=== PATIENT | female | born 1975 | race Caucasian/White ===

== ENCOUNTER 2022-02-07 08:39 | Outpatient (CLI) | payer SELFPAY | END 2022-02-07 08:40 | disposition home or self-care (01) | LOC: FRMREF 08:40 | PROVIDERS: PCP Physician Assistant Medical; Visit Provider Physician Assistant Medical | DX: R30.0 Dysuria (principal); F41.9 Anxiety disorder, unspecified | CPT/HCPCS: 87086; 87186; 87491; 87591 ==

== ENCOUNTER 2022-08-27 13:05 | Outpatient (CLI) | payer BC, SELFPAY | END 2022-08-27 13:06 | disposition home or self-care (01) | LOC: NFLDREF 08-30 04:52 | PROVIDERS: PCP Physician Assistant Medical; Referring Provider Physician Assistant Medical; Visit Provider Registered Nurse | DX: R30.0 Dysuria (principal); N39.0 Urinary tract infection, site not specified | CPT/HCPCS: 87086; 87186 ==

== ENCOUNTER 2022-11-26 13:17 | Outpatient (CLI) | payer BC, SELFPAY ==
[2022-11-26 19:44] LABS: Chlamydia DNA Amplified* NOT DETECTED (No Detected); GC DNA Amplified* NOT DETECTED (No Detected)
== END 2022-11-26 13:18 | disposition home or self-care (01) ==
LOC: NFLDREF 13:19
PROVIDERS: PCP Physician Assistant Medical; Visit Provider Registered Nurse
DX: N89.8 Other specified noninflammatory disorders of vagina (principal)
CPT/HCPCS: 87491; 87591

== ENCOUNTER 2023-07-18 13:30 | Emergency (ER) | payer OTHER, SELFPAY ==
[2023-07-18 13:54] VITALS: BP 119/68; PULSE 120; RESP 20; TEMP 38.6; O2SAT 98; BMI 23.6
[2023-07-18 14:37] LABS: Strep A DNA Probe* NOT DETECTED (Not Detectd)
[2023-07-18 14:49] LABS: PCR FLU A Negative PCR FLU A (Negative); PCR FLU B POSITIVE PCR FLU B (Negative); PCR RSV Negative PCR RSV (Negative); SARS PCR* Negative SARS-CoV-2 (Negative)
--- NOTE | 2023-07-18 15:24 | ED.GENADULT ---
HPI - General Adult General Chief complaint: Weakness Stated complaint: Fever, body aches, cough Time Seen by Provider: 07/18/23 14:46 History of Present Illness HPI narrative: Son brings mom in today because he thinks his mom is suffering from menopause . Mom states she has been achy all over and has not been able to eat or drink for three days, no energy and fever/chills. She has also had a sore throat. Strep swab and triple swab done in triage. 47-year-old woman presenting to the emergency department with concern of aches and headache. Limited oral intake over the last 3 days. Just over 3 days ago seemed to be gone with sore throat. Did vomit once but she thinks that was related to gagging while coughing. Also had 1 episode of diarrhea. Has not had a bowel movement for a few days. Just wants to feel better ?fix me?. Was actually just starting work this week. Unsure from whom were where she might have gotten sick Related Data Previous Rx's Medication Instructions Recorded venlafaxine 150 mg 150 mg PO QDAY #90 caps 04/16/23 capsule,extended release 24 hr oxycodone 5 mg/5 mL oral solution 7 mg (7 mL) PO Q4-6H PRN pain #280 04/24/23 mL venlafaxine 37.5 mg 37.5 mg PO QDAY #30 caps 04/24/23 capsule,extended release 24 hr venlafaxine 75 mg capsule,extended 75 mg PO QAM #14 caps 07/14/23 release 24 hr Allergies Allergy/AdvReac Type Severity Reaction Status Date / Time No Known Drug Allergies Allergy Verified 07/18/23 13:56 Review of Systems Status of ROS: Reports: 6 or more systems reviewed and unremarkable except as noted in History and below [facility] Medical History Bacterial vaginosis ?N76.0 - Acute vaginitis (ICD-10) ?B96.89 - Other specified bacterial agents as the cause of diseases classified elsewhere (ICD-10) Latent tuberculosis ?Z22.7 - Latent tuberculosis (ICD-10) History of dizziness ?Z87.898 - Personal history of other specified conditions (ICD-10) Surgical History Status post wrist surgery (12/01/12) ?Z98.890 - Other specified postprocedural states (ICD-10) History of breast augmentation (12/01/12) ?Z98.82 - Breast implant status (ICD-10) Family History Paternal Grandmother Asthma Depression Mother Depression Diabetes Sister Bipolar disorder Diabetes High blood pressure Aunt Diabetes Bipolar disorder Uterine cancer Father Myocardial infarction, Onset Age: 63 Stroke Son Schizophrenia Social History Narrative: Non-smoker Rarely consumes alcohol Does not use illicit drugs Exercises regularly 3/week, running, rope jumping What is your current living situation?: I presently have a place to live Problems where you live: declined to answer In the past 12 months, utilities in danger of being shut off: no In past 12 months, lack of transportation kept you from medical appts, meetings, work, or getting things needed for daily living: no In the past 12 mos, have been you worried that your food would run out before you had money to buy more?: often true In the past 12 mos, the food you bought just didn't last and you didn't have money to buy more?: often true Smoking Status: Never smoker Do you use any of these nicotine containing products: None How often do you have a drink containing alcohol: never How often do you have six or more drinks on one occasion: Never AUDIT-C Alcohol total score: 0 Non-prescribed substance use: denies use How often does anyone, including family, friends and others, physically hurt you: never How often does anyone, including family, friends and others, insult or talk down to you: never How often does anyone, including family, friends and others, threaten you with harm: never How often does anyone, including family, friends and others, scream or curse at you: never Little interest or pleasure in doing things: several days Feeling down, depressed, or hopeless: more than half the days service: No Exam Narrative: Exam Narrative: Pleasant. Easily conversant. Cranial nerves 2-12 intact. Clearly uncomfortable. Slightly labored in breathing but not tachypneic. Intermittent cough. Oropharynx is sticky. Mildly erythematous posteriorly. No cervical lymphadenopathy. Lungs are clear. Heart is tachycardic in a regular rhythm. Abdomen is soft. Moving all extremities without difficulty. Skin is quite warm. Dry. Const: Vital Signs, click to edit/add: Vital Signs - 24 hr 07/18/23 13:54 07/18/23 16:26 Temperature 101.5 F H 100.1 F H Pulse Rate [Right Pulse Oximeter] 120 H 83 Respiratory Rate 20 20 Blood Pressure [Ri ght Upper Arm] 119/68 112/64 Pulse Oximetry 98 99 Oxygen Delivery Me thod Room Air Room Air Documenting provider has reviewed patient's vital signs: yes Course Vital Signs Vital signs: Initial Vital Signs Temperature 101.5 F H 07/18/23 13:54 Temperature Source Temporal Artery Scan 07/18/23 13:54 Pulse Rate 120 H 07/18/23 13:54 Pulse Rhythm Regular 07/18/23 13:54 Pulse Strength 3+ Normal 07/18/23 13:54 Respiratory Rate 20 07/18/23 13:54 Blood Pressure 119/68 07/18/23 13:54 Blood Pressure Mean 85 07/18/23 13:54 Blood Pressure Position Sitting 07/18/23 13:54 Pulse Oximetry 98 07/18/23 13:54 Oxygen Delivery Method Room Air 07/18/23 13:54 Vital Signs Temperature 101.5 F H 07/18/23 13:54 Pulse Rate 120 H 07/18/23 13:54 Respiratory Rate 20 07/18/23 13:54 Blood Pressure 119/68 07/18/23 13:54 Pulse Oximetry 98 07/18/23 13:54 Oxygen Delivery Method Room Air 07/18/23 13:54 Temperature 100.1 F H 07/18/23 16:26 Pulse Rate 83 07/18/23 16:26 Respiratory Rate 20 07/18/23 16:26 Blood Pressure 112/64 07/18/23 16:26 Pulse Oximetry 99 07/18/23 16:26 Oxygen Delivery Method Room Air 07/18/23 16:26 Medications Administered Medications: Discontinued Medications Generic Name Dose Route Start Last Admin Trade Name Freq PRN Reason Stop Dose Admin Sodium Chloride 1,000 mls @ 1,000 mls/hr 07/18/23 15:33 07/18/23 17:18 0.9 % Sodium Chloride 1000 Ml IV 07/18/23 16:32 Infused .Q1H ONE Infusion Ketorolac Tromethamine 30 mg 07/18/23 15:33 07/18/23 16:20 Ketorolac 30 Mg/Ml Inj IVP 07/18/23 15:34 30 mg ONCE ONE Administration Ondansetron HCl 4 mg 07/18/23 15:33 07/18/23 16:21 Ondansetron 2 Mg/Ml Inj IVP 07/18/23 15:34 4 mg ONCE ONE Administration Medical Decision Making MDM Narrative Medical decision making narrative: Would appear that would likely benefit from hydration. Would screen for COVID and influenza given community prevalence. I would suspect influenza here. Likely related myalgias. Swab was also collected for strep per concern. Monitor for improvement in heart rate and fever. Discussed options for treatment. IV hydration, antiemetic and ketorolac. Indeed positive for influenza type B. On reassessment does have more energy. Seems more relaxed. Heart rate is definitely improved. Glade a little clammy as if fever has broken. Temperature is improved as well on recheck. Able to tolerate oral intake. Doubtful that Tamiflu would be further beneficial given duration of illness and no comorbidities. Might cause more nausea. She is requesting something to help with this cough. See patient discharge plan for further discussion Lab Data Lab results reviewed: Yes I reviewed the patient's lab results Labs: Lab Results 07/18/23 Range/Units 13:53 SARS-CoV-2 (PCR) Negative SARS-CoV-2 (Negative) Influenza Type A (PCR) Negative PCR FLU A (Negative) Influenza Type B (PCR) POSITIVE PCR FLU B A (Negative) RSV (PCR) Negative PCR RSV (Negative) Group A Strep DNA NOT DETECTED (Not Detectd) Discharge Plan Discharge Clinical Impression: Influenza B, Myalgia Patient Disposition: Home w/ Parent or Adult Condition: Improved Instructions: Influenza (ED), Droplet Precautions (ED) Additional Instructions: Focus on hydration. Can take up to 800 mg of ibuprofen or up to 1000 mg of acetaminophen per dose. These can also be combined. Alternative to the ibuprofen might be up to 500 mg naproxen 2 times daily. I do think ibuprofen is typically more effective than acetaminophen at controlling fever and body aches. I would consider you not contagious after 24 hours of no fever. Cough syrup from [facility] Activity Level: No Restrictions Discharge Diet: Regular Prescriptions: No Action venlafaxine 37.5 mg capsule,extended release 24hr 37.5 mg PO QDAY Qty: 30 0RF Rx Instructions: Daily for 2 weeks then every other day for a week then stop oxycodone 5 mg/5 mL solution 7 mg PO Q4-6H PRN (Reason: pain) Qty: 280 0RF venlafaxine 150 mg capsule,extended release 24hr 150 mg PO QDAY Qty: 90 0RF venlafaxine 75 mg capsule,extended release 24hr 75 mg PO QAM Qty: 14 0RF Rx Instructions: 1 po daily for 2 week then decrease to 37.5mg. Follow Up/Referrals: Hiwot Jensen PA-C [Primary Care Provider] - Stand Alone Forms: [employer] Info Instructions
[2023-07-18] MEDS: 0.9 % SODIUM CHLORIDE 1000 ml 1,000 ML IV (16:18)
[2023-07-18] MEDS: KETOROLAC 30 MG/ML inj IVP (16:20)
[2023-07-18] MEDS: ONDANSETRON 2 MG/ML inj 4 MG IVP (16:21)
[2023-07-18 16:26] VITALS: BP 112/64; PULSE 83; RESP 20; TEMP 37.8; O2SAT 99
== END 2023-07-18 18:00 | disposition home or self-care (01) ==
PROVIDERS: Emergency Provider Family Medicine; PCP Physician Assistant Medical
DX: M79.10 Myalgia, unspecified site (principal); J10.1 Influenza due to other identified influenza virus with other respiratory manifestations
CPT/HCPCS: 87631; 87651; 96374; 96375; 99283; 99284; J1885; J2405; J7030

== ENCOUNTER 2024-09-09 15:13 | Outpatient (CLI) | payer OTHER, SELFPAY ==
--- NOTE | 2024-09-09 15:20 | CRLHL7_ITS ---
For Patients: As a result of the Century Cures Act, medical imaging exams and procedure reports are released immediately into your electronic medical record. You may view this report before your referring provider. If you have questions, please contact your health care provider. INDICATION: BILATERAL SCREENING MAMMOGRAM, ASYMPTOMATIC 48 Y/O FEMALE COMPARISON: 04/22/20, 01/26/15 TECHNIQUE: CC and MLO views were obtained. These mammographic images have been obtained using full-field digital technique. These mammographic images were interpreted with the benefit of computer aided detection and tomosynthesis. BREAST COMPOSITION: The breasts are extremely dense, which lowers the sensitivity of mammography. FINDINGS: No suspicious findings. ASSESSMENT: BI-RADS 2 Benign RECOMMENDATION: Annual screening mammogram. A lay language report of this examination will be provided to the patient. Dictated by: Augustus Rm MD @ 09/16/2024 13:14:09 (Electronically Signed)
== END 2024-09-09 15:14 | disposition home or self-care (01) ==
PROVIDERS: PCP Physician Assistant Medical; Visit Provider Physician Assistant Medical
DX: Z12.31 Encounter for screening mammogram for malignant neoplasm of breast (principal); R92.343 Mammographic extreme density, bilateral breasts
CPT/HCPCS: 77063; 77067

== ENCOUNTER 2025-01-14 06:47 | Outpatient (CLI) | payer OTHER, SELFPAY ==
[2025-01-07 13:31] LABS: Hematocrit 41.7 % (33.0-51.0); Hemoglobin* 13.8 gm/dL (12.0-16.0); Immature Granulocytes Abs Auto 0.02 K/uL (0.00-0.30); Immature Granulocytes Pct Auto 0.3 %; Lymphocytes Absolute Auto 1.59 K/uL (0.90-2.90); Mean Corpuscular HGB Conc 33 gm/dL (32-36); Mean Corpuscular Hemoglobin 29 pg (26-34); Mean Corpuscular Volume 87 fL (80-100); RDW Coefficient of Variation % 12.5 % (11.5-15.5); Red Blood Count 4.78 m/uL (4.00-5.20); White Blood Count* 5.97 K/uL (4.50-11.00)
[2025-01-07 13:39] LABS: Slide Review Reflex No
[2025-01-07 13:48] LABS: Albumin* 4.2 g/dL (3.3-5.0); Chloride* 104 mmol/L (96-114); Potassium* 4.5 mmol/L (3.6-5.1); Sodium* 137 mmol/L (135-149)
[2025-01-07 13:51] LABS: Alanine Aminotransferase* 21 U/L (4-35); Alkaline Phosphatase* 48 U/L (40-150); Anion Gap 6 mEq/L (7-15); Aspartate Amino Transferase* 28 U/L (12-35); Bilirubin Total* 0.4 mg/dL (0.1-1.5); Blood Urea Nitrogen* 14 mg/dL (5-24); Carbon Dioxide* 27 mmol/L (20-32); Cholesterol* 193 mg/dL (90-199); Creatinine* 0.8 mg/dL (0.5-1.5); Estimated Glomerular Filt Rate 91 ml/min; Total Protein* 7.2 g/dL (6.0-8.3); Triglycerides* 77 mg/dL (40-149)
[2025-01-07 13:52] LABS: Calcium* 9.2 mg/dL (8.4-10.6); Glucose* 102 mg/dL (60-115); HDL Cholesterol* 46 mg/dL (>=50)
[2025-01-07 13:58] LABS: Vitamin D 25 Hydroxy* 32 ng/mL (30-80)
[2025-01-07 14:08] LABS: Free T4 Free Thyroxine* 1.02 ng/dL (0.70-1.85)
[2025-01-07 14:42] LABS: Vitamin B12* 394 pg/mL (243-894)
[2025-01-08 21:03] LABS: Estradiol Premenol Female 106 pg/mL
[2025-01-08 22:12] LABS: Follicle Stimulating Hormone 4.3 IU/L
[2025-01-08 23:19] LABS: Insulin, Fasting 9 uIU/mL (3-25)
[2025-01-12 16:00] LABS: Testosterone, Free LC-MS/MS 1.7 pg/mL (1.1-5.8); Testosterone, LC-MS/MS 15 ng/dL (9-55)
== END 2025-01-14 06:48 | disposition home or self-care (01) ==
LOC: NPINS 06:48
PROVIDERS: PCP Physician Assistant Medical; Visit Provider Nurse Practitioner Obstetrics & Gynecology
DX: R63.5 Abnormal weight gain (principal); R53.83 Other fatigue; N95.1 Menopausal and female climacteric states
CPT/HCPCS: 80053; 80061; 82306; 82607; 82670; 82728; 83001; 83036; 83520; 83525; 84270; 84402; 84403; 84439; 84443; 85025